=== PATIENT | male | born 1980 | race Caucasian/White ===

== ENCOUNTER 2018-08-24 13:16 | Emergency (ER) | payer OTHER ==
[2018-08-24 13:25] VITALS: BP 117/67; PULSE 79; RESP 18; TEMP 98; O2SAT 100
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
--- NOTE | 2018-08-24 14:45 | RAD ---
Date of service: 08/24/2018 PROCEDURE: Left Wrist Radiographs. HISTORY: wrist pain COMPARISON: None. TECHNIQUE: 3 views obtained. FINDINGS: BONES: Bone alignment and mineralization are normal. There is no acute displaced fracture or bone destruction. There is an old nonunited transverse fracture deformity in the styloid process of ulna and subarticular cystic changes in the distal ulna. JOINTS: Normal. No dislocation. SOFT TISSUES: Normal. OTHER FINDINGS: None. IMPRESSION: No acute displaced fracture or dislocation.
--- NOTE | 2018-08-24 14:47 | RAD ---
Date of service: 08/24/2018 PROCEDURE: Radiographs of the Left Forearm HISTORY: injury COMPARISON: None available. TECHNIQUE: Frontal and lateral views obtained. 2 views obtained. FINDINGS: BONES: Status post open reduction and internal fixation of acute fracture in the distal diaphysis of the ulna with a metallic create and multiple screws. A transverse fracture line is identified distal to most distal metallic screw. JOINT SPACES: Unremarkable. OTHER FINDINGS: None. IMPRESSION: Status post open reduction and internal fixation of a mildly displaced fracture in the distal diaphysis of the ulna with a metallic plate and multiple screws. A transverse fracture line is identified distal to the most distal screw.
== END 2018-08-24 15:25 | disposition home or self-care (01) ==
LOC: H.ER 13:16
DX: S52.602A Unspecified fracture of lower end of left ulna, initial encounter for closed fracture (principal); W22.8XXA Striking against or struck by other objects, initial encounter; Y92.89 Other specified places as the place of occurrence of the external cause

== ENCOUNTER 2018-10-05 12:24 | Emergency (ER) | payer OTHER ==
[2018-10-05 12:31] VITALS: BP 122/70; PULSE 67; RESP 18; TEMP 97.9; O2SAT 98
[2018-10-05 12:32] VITALS: BMI 25.7
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
--- NOTE | 2018-10-05 14:07 | RAD ---
Date of service: 10/05/2018 PROCEDURE: Radiographs of the Left Forearm HISTORY: follow up of ulna fracture COMPARISON: Left forearm radiographs 08/24/2018. TECHNIQUE: Frontal and lateral views obtained. 2 views obtained. FINDINGS: BONES: Transverse fracture line is reiterated at the of the distal screw related to compression plate and multiple screws as post ORIF. No interval displacement of the major distal fracture fragment is appreciated at this time with interval callus forming over the fracture site best appreciable in the lateral projection. No new fracture. No destructive bony lesion appreciated. JOINT SPACES: Unremarkable. OTHER FINDINGS: None. IMPRESSION: Distal ulnar fracture at intermediate stage of healing at the distal portion of stable is a dexter by compression plate and multiple screws as discussed above. No new fracture appreciable. Callus formation clearly identified at the fracture site in the interval. Left radius remains diffusely unremarkable.
== END 2018-10-05 13:40 | disposition home or self-care (01) ==
LOC: H.ER 12:24
DX: S52.202D Unspecified fracture of shaft of left ulna, subsequent encounter for closed fracture with routine healing (principal); X58.XXXD Exposure to other specified factors, subsequent encounter; Z87.891 Personal history of nicotine dependence